=== PATIENT | female | born 1950 | race African-American/Black ===

== ENCOUNTER 2022-12-17 11:13 | Outpatient (OUT) | payer MEDICARE, SELFPAY ==
--- NOTE | 2022-12-17 11:59 | P.GSHP_ITS ---
History of Present Illness History of Present Illness Chief complaint: right kidney stone s/p left stent placement Narrative: Patient presents for preadmission testing. The patient states she has kidney stones. She had urosepsis and was admitted to the hospital for stent placement 10/25/2022. She states since that time she's had some congestion and cough with occasional dyspnea which does not seem to be related to activities or exertion. She denies any angina or syncope. She was evaluated by cardiology as an inpatient during her hospital stay and cleared for her previous procedure. She has an appointment for follow-up with cardiology at the end of the month. She states she continues to have occasional flank pain but denies any dysuria or hematuria. Review of Systems ROS Narrative REVIEW OF SYSTEMS: Negative except as stated in HPI, ten or more systems reviewed. Constitutional: No fever , chills, weakness ENT: No sore throat or epistaxis Cardiovascular: No edema, chest pain, palpitations, or activity intolerance Musculoskeletal: No joint pain or swelling Gastrointestinal: No abdominal pain, constipation, diarrhea, or vomiting Genitourinary: No dysuria or hematuria Neurological: No numbness, tingling, weakness, or headache Psychiatric: No mood changes [facility] Medical History (Updated 12/17/22 @ 11:57 by Jyoti Izaguirre NP) Surgical History (Updated 12/17/22 @ 11:44 by Jyoti Izaguirre NP) Family History (Updated 12/17/22 @ 11:44 by Jyoti Izaguirre NP) Other Family history of hypertension Social History (Updated 12/17/22 @ 11:37 by Jyoti Izaguirre NP) Within the past year, how often did you have a drink containing alcohol: 2-3 times a week Smoking status: Former smoker Non-prescribed substance use: denies use Highest level of school completed/degree received: high school graduate Meds Home Medications and Allergies Home Medications Medication Instructions Recorded Confirmed Type allopurinol 300 mg tablet 300 mg PO DAILY 12/17/22 12/17/22 History amlodipine 10 mg tablet 10 mg PO DAILY 12/17/22 12/17/22 History atorvastatin 40 mg tablet 40 mg PO DAILY 12/17/22 12/17/22 History celecoxib 100 mg capsule (Celebrex) 100 mg PO DAILY 12/17/22 12/17/22 History metoprolol succinate 100 mg 100 mg PO DAILY 12/17/22 12/17/22 History tablet,extended release 24 hr oxybutynin chloride 5 mg 5 mg PO DAILY 12/17/22 12/17/22 History tablet,extended release 24 hr Allergies Allergy/AdvReac Type Severity Reaction Status Date / Time No Known Drug Allergies Allergy Verified 12/17/22 11:34 Exam Narrative Exam Narrative: Constitutional: Awake, alert, comfortable, well-appearing, nontoxic, interactive, vital signs as charted Head: Normocephalic, atraumatic Neck: Supple, normal appearance, normal range of motion, no meningeal signs, no lymphadenopathy Respiratory: No respiratory distress, breath sounds clear, harsh cough noted Cardiovascular: Regular rate and rhythm, strong and regular heart tones Abdomen: Nontender, normal bowel sounds, soft, no CVA tenderness Musculoskeletal: Normal gait, no swelling or edema Skin: No rashes or induration, no lesions, only visible skin inspected Neuro: No neurological deficits, normal sensation Psychiatric: Oriented ?3, normal affect Assessment and Plan Assessment and Plan (1) Kidney stones: (2) S/P ureteral stent placement: Plan RIGHT ESWL and cystoscopy, LEFT stent removal scheduled with Dr. Upton 12/20/2022.
[2022-12-17 12:10] LABS: Basophils Absolute Auto 0.1 10^3/uL (0.0-0.1); Basophils Percent Auto 0.6 % (0.2-2.0); Eosinophils Absolute Auto 0.5 10^3/uL (0.0-0.7); Eosinophils Percent Auto 5.4 % (0.9-7.0); Hemoglobin 13.5 g/dL (12.0-16.0); Immature Granulocytes Abs Auto 0.04 10^3/uL (0.00-0.03); Immature Granulocytes Pct Auto 0.4 % (0.0-0.5); Lymphocytes Absolute Auto 2.8 10^3/uL (1.2-3.8); Mean Corpuscular HGB Conc 31.4 g/dL (29.9-35.2); Mean Corpuscular Hemoglobin 28.7 pg (26.7-34.0); Mean Corpuscular Volume 91.3 fL (81.0-99.0); Mean Platelet Volume 10.7 fL (9.5-13.5); Monocytes Absolute Auto 0.8 10^3/uL (0.3-0.8); Monocytes Percent Auto 7.9 % (1.7-12.0); Neutrophils Absolute Auto 5.7 10^3/uL (1.4-6.5); Neutrophils Percent Auto 57.7 % (43.0-75.0); Platelet Count 310 10^3/uL (150-450); Red Blood Count 4.71 10^6/uL (4.20-5.40); Red Cell Distribution Width 14.6 % (11.0-15.0); White Blood Count 9.9 10^3/uL (4.0-11.0)
[2022-12-17 12:19] LABS: INR 0.99; Partial Thromboplastin Time 28.2 sec (22.3-36.2); Prothrombin Time 10.5 sec (9.0-11.6)
[2022-12-17 12:29] LABS: SARS-CoV-2 Ag NEGATIVE (NEGATIVE)
[2022-12-17 12:51] LABS: Anion Gap 10.8; BUN Creatinine Ratio 21.1; Calcium 9.8 mg/dL (8.5-10.1); Carbon Dioxide 30.3 mmol/L (21.0-32.0); Chloride 105 mmol/L (98-107); Estimated GFR (African America 57 (>=60); Estimated GFR (Non-African Ame 47 (>=60); Glucose 99 mg/dL (74-106); Potassium 4.1 mmol/L (3.5-5.1); Sodium 142 mmol/L (136-145)
[2022-12-17 16:04] LABS: SARS-CoV-2 NAA NOT DETECTED (NOT DETECTE)
== END 2022-12-17 11:14 | disposition home or self-care (01) ==
PROVIDERS: Nurse Practitioner; Visit Provider Urology
DX: Z01.812 Encounter for preprocedural laboratory examination (principal); N20.0 Calculus of kidney; Z96.0 Presence of urogenital implants; M19.90 Unspecified osteoarthritis, unspecified site; E78.5 Hyperlipidemia, unspecified; Z20.822 Contact with and (suspected) exposure to COVID-19
CPT/HCPCS: 36415; 80048; 85025; 85610; 85730; 87635; 87811; G0463

== ENCOUNTER 2022-12-20 09:44 | Day surgery (SDC) | payer MEDICARE, SELFPAY ==
[2022-12-17 11:37] VITALS: BP 117/72; PULSE 79; RESP 20; TEMP 36.4; O2SAT 95; BMI 44.8
[2022-12-20] VITALS (11 sets, daily range): BP systolic 123–166; BP diastolic 77–100; PULSE 57–82; RESP 13–26; TEMP 36.4–36.9; O2SAT 84–98; BMI 44.0
--- NOTE | 2022-12-20 09:57 | XR_ITS ---
The [address] [address] Patient Name: CHANNING PINTO MRN: [id number] date: 1950 Sex: F Assigned Patient Location: [facility] Current Patient Location: [facility] Accession/Order Number: [id number] Exam Date: 12/20/2022 09:52 Report Date: 12/20/2022 10:29 At the request of: MARILYN KELLY Procedure: XR abdomen 1V EXAM: XR abdomen 1V HISTORY: kidney stone COMPARISON: None. TECHNIQUE: AP view of the abdomen. FINDINGS: Nonobstructive bowel gas pattern is noted. There are punctate left renal calculi with indwelling double-J ureteral stent. The osseous structures are intact. XR/XR abdomen 1V IMPRESSION: Punctate left nephrolithiasis with double-J ureteral stent. Electronically authenticated by: SHANDRA ARIAS Date: 12/20/2022 10:29
[2022-12-20] MEDS: LACTATED RINGER'S SOLUTION 1,000 ML 50 ML IV ×2 (10:37→11:50)
[2022-12-20] MEDS: CEFAZOLIN SODIUM/DEXTROSE,ISO 1 GM/50 ML IV.SOLN IV (10:38)
[2022-12-20] MEDS: IOHEXOL 300 MG/ML - 50 ML BTL 510 MG IV (11:14)
[2022-12-20] MEDS: IOHEXOL 240 MG/ML - 10 ML VIAL 480 MG INJ (11:40)
[2022-12-20] MEDS: IOHEXOL 240 MG/ML - 10 ML VIAL INJ (11:46)
--- NOTE | 2022-12-20 11:50 | P.URON_ITS ---
Urology Surgery Operative Note Operative Note Procedure Date: 12/20/22 Time Out Performed: yes Pre-op Diagnosis: right nephrolithiasis and status post left ureteroscopic stone manipulation and stent placement. Post-op Diagnosis: same Procedures performed: 1. Cystoscopy. #2. Left stent removal. #3. Right retrograde pyelogram. #4. Right ESWL. Anesthesia: other (Gen. by LMA) Primary Surgeon: Mino Upton Complications: none Estimated blood loss (mL): 5 Findings: #1. Mildly encrusted left ureteral stent. #2. Right lower pole nephrolithiasis Specimens: non- Drains: non- Indications for Procedures: this lady has a 7 mm right lower pole stone identified by renal ultrasound. She also had left ureteroscopic stone manipulation and stent placement several weeks ago. She now presents for cystoscopy left stent removal and right ESWL. She has signed an informed consent for these procedures after all the risks were explained to her. Some of these risks include bleeding, perinephric hematoma, infection and anesthesia to name a few. Detailed description of Procedure: The patient was brought to the Operating Room and placed on Siemens electromagnetic lithotripsy treatment table in the supine position. SCDs were placed on their lower extremities and turned on and functioning during the entire case. Timeout was done by all parties in the room. We all agreed upon the patient's identification and the planned procedures for this patient. General Anesthesia was then administered via LMA. her legs were then frog leg and her perineum and genitalia were sterilely prepped and draped in the usual fashion. I then passed a flexible cystoscope per urethra and into the bladder. The stent was identified and it was mildly encrusted. I then passed a flexible grasping forceps through the scope and grasped the end of the stent. The scope and stent were then removed without difficulty. We then used fluoroscopy to identify her stone in the lower pole. We were unable to identify had with confidence due to bowel contents blurring the view. We then elected to give her 100 mL bolus of Omnipaque contrast IV followed by 20 mg of Lasix. After waiting 10 minutes ever saw any nephrogram or contrast within the collecting system. Therefore, we then repositioned her into the modified dorsal lithotomy position. All pressure points were satisfactorily padded. Genitalia were sterilely prepped and draped in the usual fashion. I then passed a 22 Kinyarwanda Olympus cystoscope per urethra and into the bladder. Panendoscopy in the bladder showed no evidence of any tumors or stones. I then passed an 8 Kinyarwanda cone-tipped catheter through the scope and cannulated the right ureter. Contrast was then injected in a retrograde manner. This filled out the collecting system well within the kidney. We could see he had a persistent filling defect in the lower pole calyx. We then lined this area up in the crosshairs after bringing the treatment head of the lithotriptor to her right flank. We then began applying shocks at power level II.0 and increased to maximum of power level III.5. Intermittent fluoroscopy showed that the filling defect was going away as more shocks were applied. The scope was passed back in the bladder a couple times and more contrast was injected in a retrograde manner to eliminate the ar ea. After 1500 shocks there was no filling defects remaining whatsoever. Therefore, the procedure was then terminated. A bladder was drained of its contents and the scope was then removed. Lena was then transferred to a [facility] bed and wheeled to PACU in stable condition.
--- NOTE | 2022-12-20 13:06 | PC.NURSE ---
Up to bedside commode and voided pink urine without difficulty; urine strained and negative for calculi; also had been incontinent of urine
--- NOTE | 2022-12-20 13:13 | PC.NURSE ---
Up to bathroom and voided cloudy, pink urine; strained and negative for calculi
--- NOTE | 2022-12-20 13:42 | PC.NURSE ---
URINE STRAINED AND NEGATIVE FOR CALCULI
--- NOTE | 2022-12-20 15:26 | PC.NURSE ---
[id number] Cystoscopy #1 with flexible cystoscopy with left stent removal [id number] Cystoscopy #2 with rigid cystoscopy with right retrograde
== END 2022-12-20 13:45 | disposition home or self-care (01) ==
PROVIDERS: Visit Provider Urology
PROC: (CPT 50590; principal; 2022-12-20 11:00)
DX: N20.0 Calculus of kidney (principal); M19.90 Unspecified osteoarthritis, unspecified site; E78.5 Hyperlipidemia, unspecified; I10 Essential (primary) hypertension; D64.9 Anemia, unspecified; Z87.891 Personal history of nicotine dependence; Z90.710 Acquired absence of both cervix and uterus; Z79.899 Other long term (current) drug therapy
CPT/HCPCS: 50590; 52310; 36415; 74018; J2704; Q9966; Q9967